=== PATIENT | female | born 1960 | race Two or more races ===

== ENCOUNTER 2018-03-31 07:21 | Inpatient (IN) | payer MEDICAID ==
[~2018-03-31] VITALS: Ht 149.9 cm; Wt 56.8 kg
[~2018-03-31 07:21] MED LIST: AGGR20025 PO; AMLO10TA55 PO; METF-444 PO; PANT40TA25 PO; SIMV20TA6 PO
[2018-03-31] MEDS ORDERED: MORPHINE SULFATE 4 MG/ML SYRINGE IVP ONE (08:00)
[2018-03-31] MEDS ORDERED: SODIUM CHLORIDE 0.9% 1,000 ML IV ONE ×3 (08:00→10:45)
[2018-03-31] MEDS ORDERED: ONDANSETRON HCL 4 MG/2 ML VIAL IVP ONE (08:00)
[2018-03-31] MEDS ORDERED: PERMETHRIN 5% 60 GM CREAM TP ONE (08:15)
[2018-03-31 08:50] LABS: BASOPHILS % (AUTO) 0.5 % (0.0-2.0); EOSINOPHILS % (AUTO) 0.9 % (1.0-6.0); LYMPHOCYTES # (AUTO) 1.5 K/uL (1.0-4.8); LYMPHOCYTES % (AUTO) 6.6 % (22.0-44.0); MEAN CORPUSCULAR HEMOGLOBIN 26.5 pg (26.0-34.0); MEAN CORPUSCULAR HGB CONC 33.2 G/dL (31.0-37.0); MEAN CORPUSCULAR VOLUME 80 fL (80-100); MONOCYTES # (AUTO) 0.9 K/uL (0.1-1.0); MONOCYTES % (AUTO) 4.1 % (2.0-9.0); NEUTROPHILS # (AUTO) 19.8 K/uL (1.8-7.7); RED BLOOD CELL COUNT(AUTO) 3.75 MIL/uL (4.00-5.20); RED CELL DISTRIBUTION WIDTH 13.9 % (11.5-14.5)
[2018-03-31 08:52] LABS: CALCIUM, TOTAL 9.8 mg/dL (8.8-10.5); CREATININE 1.59 mg/dL (0.60-1.30); POTASSIUM 4.2 mmol/L (3.5-5.1)
[2018-03-31 08:56] LABS: NEUTROPHILS % (AUTO) 87.9 % (40.0-70.0); PLATELET COUNT (AUTO) 1035 K/uL (150-450)
[2018-03-31 08:59] LABS: ALBUMIN 2.2 g/dL (3.4-5.0); BILIRUBIN,TOTAL 0.4 mg/dL (0.1-1.0); TOTAL PROTEIN, SERUM 9.7 g/dL (6.4-8.2)
[2018-03-31] MEDS ORDERED: PIPERACILLIN/TAZO 3.375 GM/D5W 50 ML IV ONE (09:15)
[2018-03-31] MEDS ORDERED: VANCOMYCIN HCL 1 GM/D5% WATER 200 ML IV ONE (09:15)
[2018-03-31] MEDS ORDERED: IVERMECTIN 3 MG TABLET PO ONE (09:30)
[2018-03-31 09:36] LABS: PLATELET MORPHOLOGY COMMENT LARGE PLTS PRESENT
[2018-03-31] MEDS ORDERED: ACETAMINOPHEN 325 MG TABLET PO PRN (10:00)
[2018-03-31] MEDS ORDERED: 0.9% SODIUM CHLORIDE 10 ML SYRINGE IVP PRN (10:00)
[2018-03-31] MEDS ORDERED: ONDANSETRON HCL 4 MG/2 ML VIAL IVP PRN (10:00)
[2018-03-31] MEDS ORDERED: MAGNESIUM HYDROXIDE SUSPENSION 30 ML UDCUP PO PRN (10:45)
[2018-03-31] MEDS ORDERED: DEXTROSE 50%-WATER 25 GM/50 ML SYRINGE IVP PRN (10:45)
[2018-03-31 12:18] VITALS: BP 155/79
[2018-03-31] MEDS: ASPIRIN 81 MG CHEWABLE TABLET PO SCH (13:49)
[2018-03-31] MEDS: PredniSONE 20 MG TABLET PO SCH (13:53)
[2018-03-31 16:05] VITALS: BP 153/85
[2018-03-31] MEDS: ACETAMINOPHEN 325 MG TABLET PO PRN (16:24)
[2018-03-31] MEDS: CLOBETASOL 0.05% 60 GM OINTMENT TP SCH ×2 (16:28→21:16)
[2018-03-31] MEDS: BACITRACIN 28.4 GM OINTMENT TP SCH (16:28)
[2018-03-31] MEDS: INSULIN LISPRO 100 UNITS/ML SQ PRN ×2 (18:11→21:15)
[2018-03-31 20:09] VITALS: BP 152/70
[2018-03-31] MEDS: ATORVASTATIN CALCIUM 20 MG TABLET PO SCH (21:14)
[2018-03-31] MEDS: HEPARIN SODIUM,PORCINE 5,000 UNITS/ML VIAL SQ SCH (21:15)
[2018-03-31] MEDS: DOCUSATE SODIUM 100 MG CAPSULE PO SCH (21:15)
[2018-04-01 00:11] VITALS: BP 147/63
[2018-04-01 00:53] LABS: GLUCOMETER DEV NAME(LOC) PV 4E2; GLUCOSE,POINT OF CARE 165 MG/DL (70-110)
[2018-04-01 00:53] LABS: GLUCOMETER DEV NAME(LOC) PV 4E2; GLUCOSE,POINT OF CARE 227 MG/DL (70-110)
[2018-04-01 05:02] VITALS: BP 189/90
[2018-04-01] MEDS: CloNIDine HCL 0.1 MG TABLET PO PRN (05:04)
[2018-04-01] MEDS: INSULIN LISPRO 100 UNITS/ML SQ PRN ×4 (05:14→20:41)
[2018-04-01 05:49] LABS: GLUCOMETER DEV NAME(LOC) PV 4E2; GLUCOSE,POINT OF CARE 198 MG/DL (70-110)
[2018-04-01 06:20] LABS: BASOPHILS % (AUTO) 0.4 % (0.0-2.0); EOSINOPHILS % (AUTO) 0 % (1.0-6.0); HEMOGLOBIN 8.9 g/dL (12.0-16.0); LYMPHOCYTES % (AUTO) 5.2 % (22.0-44.0); MEAN CORPUSCULAR HEMOGLOBIN 27.8 pg (26.0-34.0); MEAN CORPUSCULAR HGB CONC 34.3 G/dL (31.0-37.0); MEAN CORPUSCULAR VOLUME 81 fL (80-100); MONOCYTES # (AUTO) 0.6 K/uL (0.1-1.0); NEUTROPHILS # (AUTO) 17.8 K/uL (1.8-7.7); RED BLOOD CELL COUNT(AUTO) 3.21 MIL/uL (4.00-5.20); RED CELL DISTRIBUTION WIDTH 14.2 % (11.5-14.5)
[2018-04-01 06:47] LABS: ALBUMIN 1.8 g/dL (3.4-5.0); BILIRUBIN,TOTAL 0.4 mg/dL (0.1-1.0); CALCIUM, TOTAL 9.4 mg/dL (8.8-10.5); CREATININE 1.21 mg/dL (0.60-1.30); POTASSIUM 4.1 mmol/L (3.5-5.1); TOTAL PROTEIN, SERUM 8.4 g/dL (6.4-8.2)
[2018-04-01 06:53] LABS: NEUTROPHILS % (AUTO) 91.4 % (40.0-70.0); PLATELET COUNT (AUTO) 795 K/uL (150-450)
[2018-04-01 08:03] VITALS: BP 154/70
[2018-04-01] MEDS: DOCUSATE SODIUM 100 MG CAPSULE PO SCH ×2 (09:01→20:29)
[2018-04-01] MEDS: PredniSONE 20 MG TABLET PO SCH (09:01)
[2018-04-01] MEDS: ASPIRIN 81 MG CHEWABLE TABLET PO SCH (09:02)
[2018-04-01] MEDS: BACITRACIN 28.4 GM OINTMENT TP SCH (09:02)
[2018-04-01] MEDS: PANTOPRAZOLE SODIUM 40 MG DR TABLET PO SCH (09:02)
[2018-04-01] MEDS: AmLODIPine BESYLATE 10 MG TABLET PO SCH (09:02)
[2018-04-01] MEDS: CLOBETASOL 0.05% 60 GM OINTMENT TP SCH ×2 (09:02→20:30)
[2018-04-01] MEDS: HEPARIN SODIUM,PORCINE 5,000 UNITS/ML VIAL SQ SCH ×2 (09:02→20:29)
[2018-04-01 11:22] VITALS: BP 130/98
[2018-04-01 15:20] VITALS: BP 139/64
[2018-04-01] MEDS: DOXYCYCLINE HYCLATE 100 MG CAPSULE PO SCH ×2 (17:24→20:29)
[2018-04-01 20:16] VITALS: BP 145/73
[2018-04-01] MEDS: ATORVASTATIN CALCIUM 20 MG TABLET PO SCH (20:29)
[2018-04-01 23:58] LABS: GLUCOMETER DEV NAME(LOC) PV 4E2; GLUCOSE,POINT OF CARE 221 MG/DL (70-110)
[2018-04-01 23:58] LABS: GLUCOMETER DEV NAME(LOC) PV 4E2; GLUCOSE,POINT OF CARE 258 MG/DL (70-110)
[2018-04-01 23:58] LABS: GLUCOMETER DEV NAME(LOC) PV 4E2; GLUCOSE,POINT OF CARE 345 MG/DL (70-110)
[2018-04-02] VITALS (7 sets, daily range): BP systolic 139–175; BP diastolic 67–91
[2018-04-02] MEDS: ACETAMINOPHEN 325 MG TABLET PO PRN ×3 (04:02→20:58)
[2018-04-02 06:50] LABS: BASOPHILS % (AUTO) 0.3 % (0.0-2.0); EOSINOPHILS % (AUTO) 0.1 % (1.0-6.0); HEMATOCRIT 24.2 % (36-46); HEMOGLOBIN 8.4 g/dL (12.0-16.0); LYMPHOCYTES # (AUTO) 1.6 K/uL (1.0-4.8); LYMPHOCYTES % (AUTO) 7.6 % (22.0-44.0); MEAN CORPUSCULAR HEMOGLOBIN 28.1 pg (26.0-34.0); MEAN CORPUSCULAR HGB CONC 34.8 G/dL (31.0-37.0); MEAN CORPUSCULAR VOLUME 81 fL (80-100); MONOCYTES % (AUTO) 4.9 % (2.0-9.0); PLATELET COUNT (AUTO) 719 K/uL (150-450); RED CELL DISTRIBUTION WIDTH 13.8 % (11.5-14.5)
[2018-04-02 07:01] LABS: NEUTROPHILS % (AUTO) 87.1 % (40.0-70.0)
[2018-04-02] MEDS: AmLODIPine BESYLATE 10 MG TABLET PO SCH (09:09)
[2018-04-02] MEDS: PANTOPRAZOLE SODIUM 40 MG DR TABLET PO SCH (09:09)
[2018-04-02] MEDS: DOXYCYCLINE HYCLATE 100 MG CAPSULE PO SCH ×2 (09:10→20:47)
[2018-04-02] MEDS: DOCUSATE SODIUM 100 MG CAPSULE PO SCH ×2 (09:10→20:47)
[2018-04-02] MEDS: PredniSONE 20 MG TABLET PO SCH (09:10)
[2018-04-02] MEDS: ASPIRIN 81 MG CHEWABLE TABLET PO SCH (09:10)
[2018-04-02] MEDS: HEPARIN SODIUM,PORCINE 5,000 UNITS/ML VIAL SQ SCH ×2 (09:10→20:47)
[2018-04-02 09:17] LABS: HIV 1-2 SCREEN 4TH GEN W/RFLX Non Reactive (Non Reactive)
[2018-04-02 09:44] LABS: APPEARANCE,URINE CLEAR (CLEAR); BILIRUBIN,URINE NEGATIVE (NEGATIVE); GLUCOSE, URINE (UA) 250 mg/dL (NEGATIVE); KETONES,URINE NEGATIVE (NEGATIVE); LEUKOCYTE ESTERASE ,URINE NEGATIVE (NEGATIVE); NITRATE,URINE NEGATIVE (NEGATIVE); OCCULT BLOOD,URINE NEGATIVE (NEGATIVE); PH,URINE 5.5 (5.0-8.0); PROTEIN,URINE NEGATIVE (NEGATIVE)
[2018-04-02] MEDS ORDERED: METHOTREXATE SODIUM 2.5 MG TABLET PO SCH (10:00)
[2018-04-02] MEDS ORDERED: FOLIC ACID 1 MG TABLET PO SCH ×2 (10:00→13:00)
[2018-04-02 10:05] LABS: SQUAMOUS EPITHELIAL CELL,UR Many /LPF (None Seen)
[2018-04-02 10:06] LABS: BACTERIA,URINE Rare /HPF (None Seen); YEAST,URINE Few /HPF (None Seen)
[2018-04-02 10:08] LABS: RBC,URINE 0-2 /HPF (0-2); WBC,URINE 0-2 /HPF (0-5)
[2018-04-02 11:20] LABS: APPEARANCE,URINE CLOUDY (CLEAR); BILIRUBIN,URINE NEGATIVE (NEGATIVE); GLUCOSE, URINE (UA) NEGATIVE (NEGATIVE); KETONES,URINE NEGATIVE (NEGATIVE); LEUKOCYTE ESTERASE ,URINE NEGATIVE (NEGATIVE); NITRATE,URINE NEGATIVE (NEGATIVE); OCCULT BLOOD,URINE NEGATIVE (NEGATIVE); PROTEIN,URINE NEGATIVE (NEGATIVE)
[2018-04-02] MEDS: CLOBETASOL 0.05% 60 GM OINTMENT TP SCH ×2 (17:32→20:47)
[2018-04-02] MEDS: BACITRACIN 28.4 GM OINTMENT TP SCH (17:32)
[2018-04-02 17:33] LABS: GLUCOMETER DEV NAME(LOC) PV 4E2; GLUCOSE,POINT OF CARE 130 MG/DL (70-110)
[2018-04-02 17:33] LABS: GLUCOMETER DEV NAME(LOC) PV 4E2; GLUCOSE,POINT OF CARE 251 MG/DL (70-110)
[2018-04-02] MEDS: INSULIN LISPRO 100 UNITS/ML SQ PRN ×2 (17:37→20:57)
[2018-04-02] MEDS: ATORVASTATIN CALCIUM 20 MG TABLET PO SCH (20:47)
[2018-04-02 21:08] LABS: GLUCOMETER DEV NAME(LOC) PV 4E2; GLUCOSE,POINT OF CARE 230 MG/DL (70-110)
[2018-04-03] MEDS: CloNIDine HCL 0.1 MG TABLET PO PRN (00:26)
[2018-04-03 04:19] VITALS: BP 163/84
[2018-04-03] MEDS: ACETAMINOPHEN 325 MG TABLET PO PRN ×2 (04:44→09:10)
[2018-04-03] MEDS: INSULIN LISPRO 100 UNITS/ML SQ PRN ×2 (05:01→11:51)
[2018-04-03 06:23] LABS: GLUCOMETER DEV NAME(LOC) PV 4E2; GLUCOSE,POINT OF CARE 173 MG/DL (70-110)
[2018-04-03 07:30] VITALS: BP 151/73
[2018-04-03 07:49] LABS: CHOL/HDL RATIO 4.5 (3.9-5.7)
[2018-04-03] MEDS ORDERED: METHOTREXATE SODIUM 2.5 MG TABLET PO ONE ×3 (08:00→22:00)
[2018-04-03] MEDS ORDERED: METHOTREXATE SODIUM 2.5 MG TABLET PO SCH (08:00)
[2018-04-03] MEDS ORDERED: PredniSONE 10 MG TABLET PO SCH (09:00)
[2018-04-03] MEDS: ASPIRIN 81 MG CHEWABLE TABLET PO SCH (09:09)
[2018-04-03] MEDS: AmLODIPine BESYLATE 10 MG TABLET PO SCH (09:09)
[2018-04-03] MEDS: DOCUSATE SODIUM 100 MG CAPSULE PO SCH (09:09)
[2018-04-03] MEDS: PANTOPRAZOLE SODIUM 40 MG DR TABLET PO SCH (09:09)
[2018-04-03] MEDS: DOXYCYCLINE HYCLATE 100 MG CAPSULE PO SCH (09:09)
[2018-04-03] MEDS: HEPARIN SODIUM,PORCINE 5,000 UNITS/ML VIAL SQ SCH (09:10)
[2018-04-03] MEDS: CLOBETASOL 0.05% 60 GM OINTMENT TP SCH (09:10)
[2018-04-03] MEDS: BACITRACIN 28.4 GM OINTMENT TP SCH (09:11)
[2018-04-03 11:50] VITALS: BP 149/73
[2018-04-03] MEDS ORDERED: METH2.5T6 PO (14:10)
[2018-04-03] MEDS ORDERED: FOLI1 PO (14:11)
[2018-04-03] MEDS ORDERED: PRED20 PO (14:11)
[2018-04-03] MEDS ORDERED: CLOB60CR4 TP (14:13)
[2018-04-03 14:14] LABS: GLUCOMETER DEV NAME(LOC) PV 4E2; GLUCOSE,POINT OF CARE 169 MG/DL (70-110)
[2018-04-06] MEDS ORDERED: PredniSONE 20 MG TABLET PO SCH (09:00)
[2018-04-09] MEDS ORDERED: PredniSONE 10 MG TABLET PO SCH (09:00)
[2018-04-10] MEDS ORDERED: METHOTREXATE SODIUM 2.5 MG TABLET PO SCH ×3 (09:00→22:00)
== END 2018-04-03 15:50 | disposition home or self-care (01) | DRG 381 ==
LOC: EMS 07:22 → 4E 09:57
PROVIDERS: ADMIT Internal Medicine; ATTEND Internal Medicine
DX: L40.1 Generalized pustular psoriasis (principal); E43 Unspecified severe protein-calorie malnutrition; N17.9 Acute kidney failure, unspecified; B86 Scabies; I10 Essential (primary) hypertension; E11.9 Type 2 diabetes mellitus without complications; L51.9 Erythema multiforme, unspecified; L30.9 Dermatitis, unspecified; D63.8 Anemia in other chronic diseases classified elsewhere; L40.0 Psoriasis vulgaris; R65.10 Systemic inflammatory response syndrome (SIRS) of non-infectious origin without acute organ dysfunction; R79.89 Other specified abnormal findings of blood chemistry; Z86.19 Personal history of other infectious and parasitic diseases; Z90.710 Acquired absence of both cervix and uterus
CPT/HCPCS: 82595; 82948; 83605; 86038; 86160; 86256; 86430; 86803; 87040; 87340; 87389; 93005; 96365; 96366; 96375; 99285; J1644; J2270; J2405; J2543; J3370; J7030; J8610

== ENCOUNTER 2018-06-25 02:40 | Inpatient (IN) | payer SELFPAY ==
[~2018-06-25] VITALS: Ht 149.9 cm; Wt 46.0 kg
[~2018-06-25 02:40] MED LIST changes: +CLOB60CR4 TP; +FOLI1 PO; +METH2.5T6 PO; +PRED20 PO
[2018-06-25] MEDS ORDERED: LISI10TA7 PO (02:55)
[2018-06-25] MEDS ORDERED: HYDR25TA PO (02:55)
[2018-06-25] MEDS ORDERED: GLIP5TAB11 PO (02:55)
[2018-06-25] MEDS ORDERED: SODIUM CHLORIDE 0.9% 1,000 ML IV ONE ×3 (03:14→11:30)
[2018-06-25] MEDS ORDERED: KETOROLAC TROMETHAMINE 30 MG/ML VIAL IVP ONE (03:15)
[2018-06-25] MEDS ORDERED: ONDANSETRON HCL 4 MG/2 ML VIAL IVP ONE (03:15)
[2018-06-25] MEDS ORDERED: MORPHINE SULFATE 4 MG/ML SYRINGE IVP ONE (03:30)
[2018-06-25 04:26] LABS: BASOPHILS % (AUTO) 0.6 % (0.0-2.0); EOSINOPHILS % (AUTO) 0.1 % (1.0-6.0); HEMOGLOBIN 14.6 g/dL (12.0-16.0); LYMPHOCYTES % (AUTO) 4.5 % (22.0-44.0); MEAN CORPUSCULAR HEMOGLOBIN 26.4 pg (26.0-34.0); MEAN CORPUSCULAR HGB CONC 31.8 G/dL (31.0-37.0); MEAN CORPUSCULAR VOLUME 83 fL (80-100); MONOCYTES # (AUTO) 0.5 K/uL (0.1-1.0); MONOCYTES % (AUTO) 2.4 % (2.0-9.0); PLATELET COUNT (AUTO) 672 K/uL (150-450); RED BLOOD CELL COUNT(AUTO) 5.54 MIL/uL (4.00-5.20); RED CELL DISTRIBUTION WIDTH 17.8 % (11.5-14.5)
[2018-06-25 04:27] LABS: APPEARANCE,URINE CLOUDY (CLEAR); GLUCOSE, URINE (UA) NEGATIVE (NEGATIVE); KETONES,URINE TRACE mg/dL (NEGATIVE); LEUKOCYTE ESTERASE ,URINE TRACE (NEGATIVE); NITRATE,URINE NEGATIVE (NEGATIVE); OCCULT BLOOD,URINE NEGATIVE (NEGATIVE); PROTEIN,URINE NEGATIVE (NEGATIVE)
[2018-06-25 04:27] LABS: NEUTROPHILS % (AUTO) 92.4 % (40.0-70.0)
[2018-06-25 04:32] LABS: BILIRUBIN,URINE PRELIM. POSITIVE (NEGATIVE)
[2018-06-25 04:34] LABS: CALCIUM, TOTAL 10.5 mg/dL (8.8-10.5); CREATININE 2.55 mg/dL (0.60-1.30); POTASSIUM 4.1 mmol/L (3.5-5.1)
[2018-06-25 04:40] LABS: BACTERIA,URINE Few /HPF (None Seen); RBC,URINE 0-2 /HPF (0-2)
[2018-06-25 04:41] LABS: SQUAMOUS EPITHELIAL CELL,UR Moderate /LPF (None Seen)
[2018-06-25 04:41] LABS: ALBUMIN 3.7 g/dL (3.4-5.0); BILIRUBIN,TOTAL 0.6 mg/dL (0.1-1.0); TOTAL PROTEIN, SERUM 9.8 g/dL (6.4-8.2)
[2018-06-25] MEDS ORDERED: 0.9% SODIUM CHLORIDE 10 ML SYRINGE IVP PRN (06:15)
[2018-06-25] MEDS ORDERED: ONDANSETRON HCL 4 MG/2 ML VIAL IVP PRN ×2 (06:15→11:30)
[2018-06-25] MEDS ORDERED: ACETAMINOPHEN 325 MG TABLET PO PRN (06:15)
[2018-06-25] MEDS ORDERED: HydrALAZINE HCL 20 MG/ML VIAL IVP PRN (06:30)
[2018-06-25] MEDS: HydrALAZINE HCL 20 MG/ML VIAL IVP PRN (06:34)
[2018-06-25 06:37] LABS: LACTIC ACID 5.6 mmol/L (0.4-2.0)
[2018-06-25 09:27] VITALS: BP 163/79
[2018-06-25 11:15] VITALS: BP 152/91
[2018-06-25] MEDS ORDERED: BISACODYL 10 MG RECTAL RECTAL SUPPOSITORY PR PRN (11:30)
[2018-06-25] MEDS ORDERED: HYDROCODONE/ACETAMINOPHEN 5-325 MG TABLET PO PRN (11:30)
[2018-06-25] MEDS ORDERED: MAGNESIUM HYDROXIDE SUSPENSION 30 ML UDCUP PO PRN (11:30)
[2018-06-25] MEDS ORDERED: MORPHINE SULFATE 2 MG/ML SYRINGE IVP PRN (11:30)
[2018-06-25] MEDS ORDERED: ZOLPIDEM TARTRATE 5 MG TABLET PO PRN (11:30)
[2018-06-25] MEDS: INSULIN LISPRO 100 UNITS/ML SQ PRN ×2 (11:47→17:06)
[2018-06-25] MEDS ORDERED: PNEUMOCOCCAL VACCINE POLYVALENT 0.5 ML VIAL [PPSV23] IM ONE (12:15)
[2018-06-25] MEDS: PIPERACILLIN SODIUM/TAZOBACTAM 2.25 GM in DEXTROSE 5%-WATER 50 ML IV SCH ×2 (12:33→20:36)
[2018-06-25 14:57] VITALS: BP 149/78
[2018-06-25] MEDS: HEPARIN SODIUM,PORCINE 5,000 UNITS/ML VIAL SQ SCH (15:39)
[2018-06-25 19:40] VITALS: BP 114/65
[2018-06-25] MEDS: DOCUSATE SODIUM 100 MG CAPSULE PO SCH (20:36)
[2018-06-25 23:46] VITALS: BP 138/77
[2018-06-26] MEDS: HEPARIN SODIUM,PORCINE 5,000 UNITS/ML VIAL SQ SCH ×3 (00:09→15:33)
[2018-06-26] MEDS: PIPERACILLIN SODIUM/TAZOBACTAM 2.25 GM in DEXTROSE 5%-WATER 50 ML IV SCH ×3 (04:08→20:12)
[2018-06-26] MEDS ORDERED: SODIUM CHLORIDE 0.9% 250 ML IV ONE (04:12)
[2018-06-26 05:22] VITALS: BP 150/81
[2018-06-26 07:44] VITALS: BP 133/91
[2018-06-26] MEDS: PANTOPRAZOLE SODIUM 40 MG DR TABLET PO SCH (08:13)
[2018-06-26] MEDS: DOCUSATE SODIUM 100 MG CAPSULE PO SCH ×2 (08:13→20:12)
[2018-06-26] MEDS: GlipiZIDE 5 MG TABLET PO SCH (08:14)
[2018-06-26 10:14] LABS: GLUCOMETER DEV NAME(LOC) 5N 1P; GLUCOSE,POINT OF CARE 93 MG/DL (70-110)
[2018-06-26 10:14] LABS: GLUCOMETER DEV NAME(LOC) 5N 1P; GLUCOSE,POINT OF CARE 100 MG/DL (70-110)
[2018-06-26 10:21] LABS: GLUCOMETER DEV NAME(LOC) 5N 2S; GLUCOSE,POINT OF CARE 96 MG/DL (70-110)
[2018-06-26 10:21] LABS: GLUCOMETER DEV NAME(LOC) 5N 2S; GLUCOSE,POINT OF CARE 98 MG/DL (70-110)
[2018-06-26 11:52] VITALS: BP 136/88
[2018-06-26 12:55] LABS: CALCIUM, TOTAL 9.1 mg/dL (8.8-10.5); CREATININE 1.04 mg/dL (0.60-1.30); POTASSIUM 3.1 mmol/L (3.5-5.1)
[2018-06-26 15:09] LABS: GLUCOMETER DEV NAME(LOC) 5N 1P; GLUCOSE,POINT OF CARE 95 MG/DL (70-110)
[2018-06-26] MEDS ORDERED: POTASSIUM CHLORIDE 20 MEQ ER TABLET PO ONE (16:15)
[2018-06-26] MEDS: INSULIN LISPRO 100 UNITS/ML SQ PRN (17:23)
[2018-06-26 19:17] VITALS: BP 151/72
[2018-06-26 19:54] LABS: GLUCOMETER DEV NAME(LOC) 5N 1P; GLUCOSE,POINT OF CARE 140 MG/DL (70-110)
[2018-06-26 19:54] LABS: GLUCOMETER DEV NAME(LOC) 5N 1P; GLUCOSE,POINT OF CARE 92 MG/DL (70-110)
[2018-06-27] VITALS (8 sets, daily range): BP systolic 126–167; BP diastolic 73–104
[2018-06-27] MEDS: HEPARIN SODIUM,PORCINE 5,000 UNITS/ML VIAL SQ SCH ×4 (00:03→23:48)
[2018-06-27] MEDS: HydrALAZINE HCL 20 MG/ML VIAL IVP PRN ×2 (04:15→11:06)
[2018-06-27] MEDS: PIPERACILLIN SODIUM/TAZOBACTAM 2.25 GM in DEXTROSE 5%-WATER 50 ML IV SCH ×3 (04:16→21:29)
[2018-06-27 05:42] LABS: BASOPHILS % (AUTO) 1.1 % (0.0-2.0); EOSINOPHILS % (AUTO) 0.8 % (1.0-6.0); HEMATOCRIT 34.7 % (36-46); LYMPHOCYTES # (AUTO) 1.5 K/uL (1.0-4.8); LYMPHOCYTES % (AUTO) 12.5 % (22.0-44.0); MEAN CORPUSCULAR HEMOGLOBIN 26.1 pg (26.0-34.0); MEAN CORPUSCULAR HGB CONC 31.8 G/dL (31.0-37.0); MEAN CORPUSCULAR VOLUME 82 fL (80-100); MONOCYTES # (AUTO) 0.7 K/uL (0.1-1.0); MONOCYTES % (AUTO) 5.5 % (2.0-9.0); NEUTROPHILS # (AUTO) 9.6 K/uL (1.8-7.7); NEUTROPHILS % (AUTO) 80.1 % (40.0-70.0); PLATELET COUNT (AUTO) 376 K/uL (150-450); RED BLOOD CELL COUNT(AUTO) 4.23 MIL/uL (4.00-5.20); RED CELL DISTRIBUTION WIDTH 17.7 % (11.5-14.5)
[2018-06-27 05:53] LABS: ANION GAP 13 mmol/L (8-16); CALCIUM, TOTAL 9.1 mg/dL (8.8-10.5); CARBON DIOXIDE 22 mmol/L (22-29); CHLORIDE 102 mmol/L (98-107); CREATININE 0.94 mg/dL (0.60-1.30); GLOMERULAR FILTR. RATE CALC > 60 mL/min (>60); GLUCOSE,RANDOM 98 mg/dL (70-110); POTASSIUM 3.8 mmol/L (3.5-5.1); SODIUM SERUM 137 mmol/L (136-145); UREA NITROGEN, BLOOD 10 mg/dL (7-18)
[2018-06-27] MEDS: PANTOPRAZOLE SODIUM 40 MG DR TABLET PO SCH (07:56)
[2018-06-27] MEDS: GlipiZIDE 5 MG TABLET PO SCH (07:56)
[2018-06-27] MEDS: DOCUSATE SODIUM 100 MG CAPSULE PO SCH ×2 (07:56→21:29)
[2018-06-27] MEDS: INSULIN LISPRO 100 UNITS/ML SQ PRN (11:35)
[2018-06-27] MEDS: ACETAMINOPHEN 325 MG TABLET PO PRN (11:44)
[2018-06-27] MEDS: DEXTROSE 50%-WATER 25 GM/50 ML SYRINGE IVP PRN (16:31)
[2018-06-27 18:09] LABS: GLUCOMETER DEV NAME(LOC) 5N 1P; GLUCOSE,POINT OF CARE 93 MG/DL (70-110)
[2018-06-27 18:54] LABS: GLUCOMETER DEV NAME(LOC) 5N 2S; GLUCOSE,POINT OF CARE 83 MG/DL (70-110)
[2018-06-27 18:54] LABS: GLUCOMETER DEV NAME(LOC) 5N 2S; GLUCOSE,POINT OF CARE 40 MG/DL (70-110)
[2018-06-27 18:54] LABS: GLUCOMETER DEV NAME(LOC) 5N 2S; GLUCOSE,POINT OF CARE 302 MG/DL (70-110)
[2018-06-27 20:23] LABS: AMYLASE 71 U/L (25-115)
[2018-06-28 00:24] LABS: GLUCOMETER DEV NAME(LOC) 5N 2S; GLUCOSE,POINT OF CARE 115 MG/DL (70-110)
[2018-06-28] MEDS: PIPERACILLIN SODIUM/TAZOBACTAM 2.25 GM in DEXTROSE 5%-WATER 50 ML IV SCH (04:06)
[2018-06-28 04:35] VITALS: BP 156/92
[2018-06-28 06:24] LABS: EOSINOPHILS % (AUTO) 1.6 % (1.0-6.0); HEMATOCRIT 33.7 % (36-46); HEMOGLOBIN 10.8 g/dL (12.0-16.0); LYMPHOCYTES # (AUTO) 1.4 K/uL (1.0-4.8); LYMPHOCYTES % (AUTO) 14.5 % (22.0-44.0); MEAN CORPUSCULAR HEMOGLOBIN 26.2 pg (26.0-34.0); MEAN CORPUSCULAR HGB CONC 31.9 G/dL (31.0-37.0); MEAN CORPUSCULAR VOLUME 82 fL (80-100); MONOCYTES # (AUTO) 0.5 K/uL (0.1-1.0); MONOCYTES % (AUTO) 5.6 % (2.0-9.0); NEUTROPHILS # (AUTO) 7.5 K/uL (1.8-7.7); NEUTROPHILS % (AUTO) 77.3 % (40.0-70.0); PLATELET COUNT (AUTO) 426 K/uL (150-450); RED CELL DISTRIBUTION WIDTH 17.4 % (11.5-14.5)
[2018-06-28] MEDS: DEXTROSE 50%-WATER 25 GM/50 ML SYRINGE IVP PRN (06:27)
[2018-06-28 06:54] LABS: CALCIUM, TOTAL 8.7 mg/dL (8.8-10.5); CREATININE 1.08 mg/dL (0.60-1.30); POTASSIUM 3.4 mmol/L (3.5-5.1)
[2018-06-28 07:00] VITALS: BP 146/80
[2018-06-28] MEDS: HEPARIN SODIUM,PORCINE 5,000 UNITS/ML VIAL SQ SCH ×3 (08:53→23:58)
[2018-06-28] MEDS: PANTOPRAZOLE SODIUM 40 MG DR TABLET PO SCH (08:53)
[2018-06-28] MEDS: GlipiZIDE 5 MG TABLET PO SCH (08:54)
[2018-06-28] MEDS: DOCUSATE SODIUM 100 MG CAPSULE PO SCH ×2 (08:54→20:35)
[2018-06-28 11:24] VITALS: BP 154/85
[2018-06-28] MEDS: PIPERACILLIN/TAZO 3.375 GM/D5W 50 ML IV SCH ×2 (12:14→20:35)
[2018-06-28] MEDS: HydrALAZINE HCL 20 MG/ML VIAL IVP PRN (12:15)
[2018-06-28] MEDS: ACETAMINOPHEN 325 MG TABLET PO PRN (12:47)
[2018-06-28 13:34] LABS: GLUCOMETER DEV NAME(LOC) 5N 1P; GLUCOSE,POINT OF CARE 252 MG/DL (70-110)
[2018-06-28 13:34] LABS: GLUCOMETER DEV NAME(LOC) 5N 1P; GLUCOSE,POINT OF CARE 48 MG/DL (70-110)
[2018-06-28 16:04] VITALS: BP 97/56
[2018-06-28 19:21] VITALS: BP 159/86
[2018-06-28] MEDS ORDERED: POTASSIUM CHLORIDE 20 MEQ ER TABLET PO ONE (20:15)
[2018-06-28 23:52] VITALS: BP 154/87
[2018-06-29] VITALS (7 sets, daily range): BP systolic 124–165; BP diastolic 65–93
[2018-06-29] MEDS: PIPERACILLIN/TAZO 3.375 GM/D5W 50 ML IV SCH ×3 (04:04→19:56)
[2018-06-29] MEDS: ACETAMINOPHEN 325 MG TABLET PO PRN (04:57)
[2018-06-29] MEDS: HydrALAZINE HCL 20 MG/ML VIAL IVP PRN ×2 (05:02→16:19)
[2018-06-29 06:17] LABS: BASOPHILS % (AUTO) 2.2 % (0.0-2.0); EOSINOPHILS % (AUTO) 1.3 % (1.0-6.0); HEMATOCRIT 34.5 % (36-46); LYMPHOCYTES # (AUTO) 1.7 K/uL (1.0-4.8); LYMPHOCYTES % (AUTO) 21.3 % (22.0-44.0); MEAN CORPUSCULAR HEMOGLOBIN 26.2 pg (26.0-34.0); MEAN CORPUSCULAR HGB CONC 31.9 G/dL (31.0-37.0); MEAN CORPUSCULAR VOLUME 82 fL (80-100); MONOCYTES # (AUTO) 0.6 K/uL (0.1-1.0); NEUTROPHILS # (AUTO) 5.3 K/uL (1.8-7.7); NEUTROPHILS % (AUTO) 67.2 % (40.0-70.0); PLATELET COUNT (AUTO) 453 K/uL (150-450); RED CELL DISTRIBUTION WIDTH 17.7 % (11.5-14.5)
[2018-06-29 06:32] LABS: CALCIUM, TOTAL 8.7 mg/dL (8.8-10.5); CREATININE 1.08 mg/dL (0.60-1.30); POTASSIUM 4.4 mmol/L (3.5-5.1)
[2018-06-29] MEDS: PANTOPRAZOLE SODIUM 40 MG DR TABLET PO SCH (08:31)
[2018-06-29] MEDS: GlipiZIDE 5 MG TABLET PO SCH (08:32)
[2018-06-29] MEDS: HEPARIN SODIUM,PORCINE 5,000 UNITS/ML VIAL SQ SCH ×3 (08:32→23:49)
[2018-06-29] MEDS: DOCUSATE SODIUM 100 MG CAPSULE PO SCH ×3 (08:32→21:00)
[2018-06-29] MEDS: AmLODIPine BESYLATE 10 MG TABLET PO SCH (18:03)
[2018-06-29] MEDS ORDERED: SODIUM CHLORIDE 0.9% 500 ML IV ONE (20:01)
[2018-06-29] MEDS: INSULIN LISPRO 100 UNITS/ML SQ PRN (21:27)
[2018-06-29 21:39] LABS: GLUCOMETER DEV NAME(LOC) 5N 1P; GLUCOSE,POINT OF CARE 135 MG/DL (70-110)
[2018-06-29 21:39] LABS: GLUCOMETER DEV NAME(LOC) 5N 1P; GLUCOSE,POINT OF CARE 152 MG/DL (70-110)
[2018-06-29 21:39] LABS: GLUCOMETER DEV NAME(LOC) 5N 1P; GLUCOSE,POINT OF CARE 103 MG/DL (70-110)
[2018-06-30] MEDS: PIPERACILLIN/TAZO 3.375 GM/D5W 50 ML IV SCH ×4 (03:58→22:18)
[2018-06-30 04:13] VITALS: BP 150/74
[2018-06-30 06:20] LABS: BASOPHILS % (AUTO) 2.1 % (0.0-2.0); EOSINOPHILS % (AUTO) 1.3 % (1.0-6.0); HEMATOCRIT 33.5 % (36-46); LYMPHOCYTES # (AUTO) 1.6 K/uL (1.0-4.8); LYMPHOCYTES % (AUTO) 20.9 % (22.0-44.0); MEAN CORPUSCULAR HEMOGLOBIN 26.5 pg (26.0-34.0); MEAN CORPUSCULAR HGB CONC 32.8 G/dL (31.0-37.0); MEAN CORPUSCULAR VOLUME 81 fL (80-100); MONOCYTES # (AUTO) 0.6 K/uL (0.1-1.0); MONOCYTES % (AUTO) 8.1 % (2.0-9.0); NEUTROPHILS # (AUTO) 5.1 K/uL (1.8-7.7); NEUTROPHILS % (AUTO) 67.6 % (40.0-70.0); PLATELET COUNT (AUTO) 471 K/uL (150-450); RED BLOOD CELL COUNT(AUTO) 4.14 MIL/uL (4.00-5.20); RED CELL DISTRIBUTION WIDTH 17.3 % (11.5-14.5)
[2018-06-30 06:35] LABS: CALCIUM, TOTAL 9.1 mg/dL (8.8-10.5); CREATININE 0.98 mg/dL (0.60-1.30); POTASSIUM 3.6 mmol/L (3.5-5.1)
[2018-06-30 06:49] LABS: LACTIC ACID 0.6 mmol/L (0.4-2.0)
[2018-06-30 06:54] LABS: GLUCOMETER DEV NAME(LOC) 5N 1P; GLUCOSE,POINT OF CARE 89 MG/DL (70-110)
[2018-06-30 07:49] VITALS: BP 147/94
[2018-06-30] MEDS: AmLODIPine BESYLATE 10 MG TABLET PO SCH (08:43)
[2018-06-30] MEDS: GlipiZIDE 5 MG TABLET PO SCH (08:43)
[2018-06-30] MEDS: DOCUSATE SODIUM 100 MG CAPSULE PO SCH ×2 (08:43→22:18)
[2018-06-30] MEDS: PANTOPRAZOLE SODIUM 40 MG DR TABLET PO SCH (08:43)
[2018-06-30] MEDS: HEPARIN SODIUM,PORCINE 5,000 UNITS/ML VIAL SQ SCH ×2 (08:43→17:00)
[2018-06-30 15:29] VITALS: BP 147/89
[2018-06-30 20:50] VITALS: BP 127/95
[2018-06-30 21:14] LABS: GLUCOMETER DEV NAME(LOC) 5N 2S; GLUCOSE,POINT OF CARE 115 MG/DL (70-110)
[2018-06-30 21:19] LABS: GLUCOMETER DEV NAME(LOC) 5N 2S; GLUCOSE,POINT OF CARE 95 MG/DL (70-110)
[2018-06-30 21:19] LABS: GLUCOMETER DEV NAME(LOC) 5N 2S; GLUCOSE,POINT OF CARE 95 MG/DL (70-110)
[2018-06-30 21:19] LABS: GLUCOMETER DEV NAME(LOC) 5N 2S; GLUCOSE,POINT OF CARE 163 MG/DL (70-110)
[2018-06-30 21:19] LABS: GLUCOMETER DEV NAME(LOC) 5N 2S; GLUCOSE,POINT OF CARE 123 MG/DL (70-110)
[2018-06-30 21:19] LABS: GLUCOMETER DEV NAME(LOC) 5N 2S; GLUCOSE,POINT OF CARE 157 MG/DL (70-110)
[2018-06-30 23:37] VITALS: BP 118/71
[2018-07-01] MEDS: HEPARIN SODIUM,PORCINE 5,000 UNITS/ML VIAL SQ SCH ×2 (01:15→08:21)
[2018-07-01] MEDS: PIPERACILLIN/TAZO 3.375 GM/D5W 50 ML IV SCH (04:58)
[2018-07-01 05:13] VITALS: BP 120/74
[2018-07-01 06:36] LABS: CREATININE 1.18 mg/dL (0.60-1.30); POTASSIUM 3.6 mmol/L (3.5-5.1)
[2018-07-01 06:44] LABS: BASOPHILS % (AUTO) 1.6 % (0.0-2.0); EOSINOPHILS % (AUTO) 2.6 % (1.0-6.0); HEMATOCRIT 39.1 % (36-46); HEMOGLOBIN 12.4 g/dL (12.0-16.0); LYMPHOCYTES # (AUTO) 2.1 K/uL (1.0-4.8); LYMPHOCYTES % (AUTO) 20.9 % (22.0-44.0); MEAN CORPUSCULAR HEMOGLOBIN 26.6 pg (26.0-34.0); MEAN CORPUSCULAR HGB CONC 31.8 G/dL (31.0-37.0); MEAN CORPUSCULAR VOLUME 84 fL (80-100); MONOCYTES # (AUTO) 0.8 K/uL (0.1-1.0); MONOCYTES % (AUTO) 7.8 % (2.0-9.0); NEUTROPHILS # (AUTO) 6.7 K/uL (1.8-7.7); NEUTROPHILS % (AUTO) 67.1 % (40.0-70.0); PLATELET COUNT (AUTO) 396 K/uL (150-450); RED BLOOD CELL COUNT(AUTO) 4.67 MIL/uL (4.00-5.20); RED CELL DISTRIBUTION WIDTH 17.2 % (11.5-14.5)
[2018-07-01 06:45] LABS: GLUCOMETER DEV NAME(LOC) 5N 1P; GLUCOSE,POINT OF CARE 113 MG/DL (70-110)
[2018-07-01 07:44] VITALS: BP 122/86
[2018-07-01] MEDS: AmLODIPine BESYLATE 10 MG TABLET PO SCH (08:20)
[2018-07-01] MEDS: PANTOPRAZOLE SODIUM 40 MG DR TABLET PO SCH (08:20)
[2018-07-01] MEDS: DOCUSATE SODIUM 100 MG CAPSULE PO SCH (08:21)
[2018-07-01] MEDS: GlipiZIDE 5 MG TABLET PO SCH (08:21)
[2018-07-01 21:14] LABS: GLUCOMETER DEV NAME(LOC) 5N 2S; GLUCOSE,POINT OF CARE 145 MG/DL (70-110)
== END 2018-07-01 09:00 | disposition home or self-care (01) | DRG 871 ==
LOC: EMS 02:40 → 4E 06:08 → 5N 07:51
PROVIDERS: ADMIT Internal Medicine; ATTEND Internal Medicine
DX: A41.9 Sepsis, unspecified organism (principal); K85.90 Acute pancreatitis without necrosis or infection, unspecified; N17.9 Acute kidney failure, unspecified; E87.2 Acidosis; K52.9 Noninfective gastroenteritis and colitis, unspecified; L40.9 Psoriasis, unspecified; E11.9 Type 2 diabetes mellitus without complications; E86.0 Dehydration; I10 Essential (primary) hypertension; K59.00 Constipation, unspecified; Z90.710 Acquired absence of both cervix and uterus; Z79.84 Long term (current) use of oral hypoglycemic drugs; Z79.899 Other long term (current) drug therapy
CPT/HCPCS: 74018; 74176; 83605; 87040; 87045; 87427; 93005; 96361; 96374; 96375; 97162; 97530; 99285; J0360; J1644; J2270; J2405; J2543; J7030; J7040; J7050; J7060